=== PATIENT | male | born 1950 | race Caucasian/White ===

== ENCOUNTER 2022-11-20 04:28 | Outpatient (CLI) | payer MEDICARE, BC, SELFPAY | END 2022-11-20 04:29 | disposition home or self-care (01) | LOC: AMB 11-21 13:19 | PROVIDERS: PCP Family Medicine; Visit Provider Family Medicine | DX: R10.9 Unspecified abdominal pain (principal) | CPT/HCPCS: A0425; A0433 ==

== ENCOUNTER 2022-11-20 04:58 | Emergency (ER) | payer MEDICARE, BC, SELFPAY ==
[2022-11-20 04:59] VITALS: BP 151/90; PULSE 109; RESP 16; TEMP 37.1; O2SAT 96; BMI 29.4
--- NOTE | 2022-11-20 05:21 | CRLHL7_ITS ---
For Patients: As a result of the 21st Century Cures Act, medical imaging exams and procedure reports are released immediately into your electronic medical record. You may view this report before your referring provider. If you have questions, please contact your health care provider. INDICATION: abd pain anterior inferior sudden Indication: Sudden onset abdominal pain. Technique: CT of the abdomen and pelvis. Coronal/sagittal reconstruction images. 100 cc of Isovue 370 IV. Comparison: None. Findings: Lung bases: There is bibasilar dependent atelectasis. There is no acute airspace disease. Calcified granuloma at the right lung base. Additional calcified granuloma in the right middle lobe. Heart size is normal. No pleural/pericardial effusion. Abdomen/pelvis: There is no solid hepatic mass. The hepatic morphology is normal. No radiopaque gallstone. No dilation of intrahepatic biliary radicals. No perihepatic ascites. The spleen demonstrates a calcified granuloma. No splenic mass. There is no adrenal mass. There is no pancreatic mass or glandular atrophy. No common bile duct stone or mass. 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 This measures 8 millimeters on series 2, image 49. Hypodense lesion within the lateral cortex of the left kidney, measuring 12 mm, and 28 Hounsfield units. This does not meet strict criteria for a cyst. Additional renal hypodensities are likely benign cysts. No portal vein thrombosis. The SMV and splenic vein are patent. Right hip arthroplasty, which creates streak artifact. Fat containing inguinal hernias. Urinary bladder is normal. There is no evidence on CT for a small bowel or colonic obstruction. No mural thickening. No perienteric edema. No evidence for appendicitis. Normal caliber appendix. There is no inguinal or pelvic sidewall lymphadenopathy. The retroperitoneum and gastrohepatic ligament are normal. Visceral artery branches are patent. IVC is patent. Bridging osteophytes at both SI joints. Degenerative disc disease. Vertebral body heights are maintained on sagittal reconstruction images. Impression: 1. There is no colonic diverticulosis, or mural thickening/perienteric edema to indicate diverticulitis. 2. There is no free air, bowel obstruction, or drainable fluid collection. 3. Visceral artery branches are widely patent. SMV and its branches are patent. There is no pneumatosis coli/pneumatosis intestinalis. 4. Healed granulomatous disease. 5. Low-density lesion in the head of the pancreas, potentially branch duct IPMN. Renal hypodensities, the largest of which measures greater than 20 Hounsfield units. This may represent a hemorrhagic or proteinaceous cyst. MRI on a nonemergent basis may be obtained to assess both findings. 6. Report called to Dr. Alexandre, ED, 11/20/22, 0738 hours. Dictated by Rachid Mayberry MD @ 11/20/2022 7:39:22 AM Please note that all CT scans at this facility use dose modulation, iterative reconstruction, and/or weight-based dosing when appropriate to reduce radiation dose to as low as reasonably achievable. Dictated by: Rachid Mayberry MD @ 11/20/2022 07:39:27 (Electronically Signed)
[2022-11-20] MEDS: 0.9 % SODIUM CHLORIDE 500 ML 500 ML IV (05:48)
--- NOTE | 2022-11-20 05:52 | ED.GENADULT ---
HPI - General Adult General Chief complaint: Abdominal Pain Stated complaint: Abdominal pain Time Seen by Provider: 11/20/22 05:00 Source: patient and EMS Limitations: no limitations History of Present Illness HPI narrative: 72-year-old male presents to the emergency department with a 5 hour history of suprapubic/left lower quadrant area abdominal pain. He says that the pain was vague in achy initially but he was able to go to bed, he awoke a few hours later with worsening pain, had a sudden small black loose bowel movement. He was unable to make it to the restroom in time. He did not try taking any medications to help with his pain, did call EMS. Patient reports that he has been seen by provider at the [facility] and has had EGD and colonoscopy within the last month. He reports that these were normal. From what I can gather they have not appreciated any bleeding with these episodes. He reports they have not told him an etiology for the black stool. Denies that his previous episodes of black stools have been accompanied by any pain. He says that the episodes of some black stools have been going on for several months. He did has no known history of diverticulitis in the past. No abdominal trauma. He was nauseated initially but did not vomit. He did receive fentanyl and Zofran from EMS. He reports the pain after intervention is now down to a 3. Pain was initially achy. No dysuria, no fever. He did not bring his list of medications, we are attempting to get this from [facility]. He reports the stomach acid medicine, antidepressant, prostate medicine and cholesterol pill. He also takes aspirin 81 mg once daily. When I ask for clarification as to why he takes aspirin, he is not able to give me a specific reason but denies prior stroke or heart disease. Denies a family history of GI cancers. Socially, he is a nonsmoker. He gets most of his care through the [facility] he reports ROS is notable for the GI symptoms as above, otherwise completely denies times 12 systems. Related Data Home Medications Medication Instructions Recorded Confirmed albuterol sulfate 90 mcg/actuation 1 inh inhalation .Q4 PRN 11/20/22 11/20/22 breath activated powder inhaler aspirin 81 mg chewable tablet 81 mg PO DAILY 11/20/22 11/20/22 cetirizine 10 mg tablet 10 mg PO ONCE 11/20/22 11/20/22 famotidine 20 mg tablet 20 mg PO BID 11/20/22 11/20/22 fluoxetine 20 mg capsule 20 mg PO DAILY 11/20/22 11/20/22 fluticasone propionate 110 1 inh inhalation BID 11/20/22 11/20/22 mcg/actuation HFA aerosol inhaler (Flovent HFA) rosuvastatin 5 mg tablet (Crestor) 5 mg PO DAILY 11/20/22 11/20/22 tamsulosin 0.4 mg capsule (Flomax) 0.4 mg PO DAILY 11/20/22 11/20/22 Allergies Allergy/AdvReac Type Severity Reaction Status Date / Time oxycodone Allergy Verified 11/20/22 05:11 bees Allergy Uncoded 11/20/22 05:11 [facility] Medical History Acid reflux Depression Surgical History History of hip replacement Social History Smoking Status: Never smoker Do you use any of these nicotine containing products: None How often do you have a drink containing alcohol: never AUDIT-C Alcohol total score: 0 Non-prescribed substance use: denies use service: Yes Exam Const: Vital Signs, click to edit/add: Vital Signs - 24 hr 11/20/22 04:59 Temperature 98.8 F Pulse Rate [Pulse Oximeter] 109 H Respiratory Rate 16 Blood Pressure [Ri ght Upper Arm] 151/90 H Pulse Oximetry 96 Oxygen Delivery Me thod Room Air Documenting provider has reviewed patient's vital signs: yes Common normals: no apparent distress General appearance: cooperative and well kempt Other: Moderate historian, cannot list medications or give specific dates. HENMT: Common normals: normocephalic and head/scalp atraumatic Head and scalp: normocephalic and atraumatic Mouth: oral and palatal mucosa normal Throat: posterior oropharynx normal Eye: General eye: normal appearance of both eyes Neck & C-Spine: Common normals: full ROM and no lymphadenopathy Resp: Common normals: normal respiratory effort, no use of accessory muscles and clear to auscultation bilaterally Effort & inspection: able to speak in complete sentences Auscultation: clear to auscultation bilaterally Cardio: Common normals: regular rate, regular rhythm, S1 normal heart sound, S2 normal heart sound and no murmurs Rate: regular rate Rhythm: regular rhythm Heart sounds: S1 normal and S2 normal GI: Other: Abdomen appears very mildly distended but bowel sounds are active in all 4 quadrants. He is tender to the left lower quadrant and suprapubic region, not so much the right side. There is a little bit of guarding to the left lower quadrant but no perceived rebound tenderness. No obvious mass or hernia. Extremity: Common normals: no pedal edema Neuro: Speech: speech normal Motor exam: no tremor noted and no movement abnormalities noted Psych: Appearance: well kempt Activity/motor behavior: appropriate eye contact Mood and affect: euthymic mood Insight: fair Judgement: fair Skin: Common normals: no rashes or lesions noted General skin exam: no rashes or lesions noted Course Vital Signs Vital signs: Initial Vital Signs Temperature 98.8 F 11/20/22 04:59 Temperature Source Temporal Artery Scan 11/20/22 04:59 Pulse Rate 109 H 11/20/22 04:59 Pulse Rhythm 11/20/22 04:59 Respiratory Rate 16 11/20/22 04:59 Blood Pressure 151/90 H 11/20/22 04:59 Blood Pressure Mean 110 11/20/22 04:59 Blood Pressure Position Standing 11/20/22 04:59 Pulse Oximetry 96 11/20/22 04:59 Oxygen Delivery Method 11/20/22 04:59 Vital Signs Temperature 98.8 F 11/20/22 04:59 Pulse Rate 109 H 11/20/22 04:59 Respiratory Rate 16 11/20/22 04:59 Blood Pressure 151/90 H 11/20/22 04:59 Pulse Oximetry 96 11/20/22 04:59 Oxygen Delivery Method 11/20/22 04:59 Temperature 98.8 F 11/20/22 04:59 Pulse Rate 109 H 11/20/22 04:59 Respiratory Rate 16 11/20/22 04:59 Blood Pressure 151/90 H 11/20/22 04:59 Pulse Oximetry 96 11/20/22 04:59 Oxygen Delivery Method 11/20/22 04:59 Medical Decision Making MDM Narrative Medical decision making narrative: Wide differential diagnosis including GI malignancy, most likely diverticulitis. Cannot exclude colitis, ischemic event, urine infection, other etiologies. Recommended lab, CT scan. Hold off on any further pain meds for now, begin IV fluids. Await CT results. Update: Tachycardia improved. Patient remains afebrile, no further stools and certainly no bleeding here. I reviewed his lab findings, no signs of bacterial infection, no leukocytosis minimally elevated CRP. CT findings reviewed with patient including follow-up plan regarding his benign-appearing renal cysts. Unfortunately I cannot send a copy of this note to the [facility] but patient may request records if he feels the need. There do not appear to be any emergent threats to his health. I would recommend that he continue to follow-up with his GI team regarding a long-term plan but there does not appear to be any dangerous threats at this time. He may continue his typical activity and diet with no restrictions at this time. Lab Data Lab results reviewed: Yes I reviewed the patient's lab results Labs: Lab Results 11/20/22 11/20/22 11/20/22 Range/Units 05:40 05:40 06:35 WBC 10.03 (4.50-11.00) K/uL RBC 4.66 (4.30-5.90) m/uL Hgb 14.6 (13.5-17.5) gm/dL Hct 44.0 (37.0-53.0) % MCV 94 (80-100) fL MCH 31 (26-34) pg MCHC 33 (32-36) gm/dL RDW Coeff of Luciano 12.8 (11.5-15.5) % Plt Count 201 (140-440) K/uL Neut % (Auto) 91.7 H (42.0-72.0) % Lymph % (Auto) 3.3 L (20-44) % [place] % (Auto) 3.7 (0.0-11.0) % Eos % (Auto) 0.9 (0.0-7.0) % Baso % (Auto) 0.1 (0.0-3.0) % Neut # (Auto) 9.20 H (1.7-7.0) K/uL Lymph # (Auto) 0.30 L (0.90-2.90) K/uL [place] # (Auto) 0.40 (0.00-0.90) K/UL Eos # (Auto) 0.09 (0.00-0.50) K/uL Baso # (Auto) 0.01 (0.00-0.30) K/uL Sodium 141 (135-149) mmol/L Potassium 5.2 H (3.6-5.1) mmol/L Chloride 112 (96-114) mmol/L Carbon Dioxide 24 (20-32) mmol/L BUN 21 (7-30) mg/dL Creatinine 1.0 (0.5-1.5) mg/dL Estimated Creat Clear 66.92 Estimated GFR 79 ml/min Glucose 127 H (60-115) mg/dL Calcium 8.7 (8.4-10.6) mg/dL Total Bilirubin 0.7 (0.1-1.5) mg/dL AST 22 (12-35) U/L ALT 21 (4-50) U/L Alkaline Phosphatase 87 (40-150) U/L C-Reactive Protein 1.4 H (0.5-1.0) mg/dL Total Protein 7.1 (6.0-8.3) g/dL Albumin 4.2 (3.3-5.0) g/dL Lipase 106 (23-300) U/L Procalcitonin 0.18 (<0.50) ng/mL Urine Color Yellow (Yellow) Urine Appearance Clear (Clear) Urine pH 6.0 (5.0-8.5) Ur Specific [place] 1.020 (1.000-1.030) Urine Protein Negative (Negative) Urine Glucose (UA) Negative (Negative) Urine Ketones Negative (Negative) Urine Blood Negative (Negative) Urine Nitrite Negative (Negative) Urine Bilirubin Negative (Negative) Urine Urobilinogen 0.2 (0.2-1.0) Ur Leukocyte Esterase Negative (Negative) Imaging Data CT scan - abdomen: My impression: No acute findings Radiologist's impression: Impression: 1. There is no colonic diverticulosis, or mural thickening/perienteric edema to indicate diverticulitis. 2. There is no free air, bowel obstruction, or drainable fluid collection. 3. Visceral artery branches are widely patent. SMV and its branches are patent. There is no pneumatosis coli/pneumatosis intestinalis. 4. Healed granulomatous disease. 5. Low-density lesion in the head of the pancreas, potentially branch duct IPMN. Renal hypodensities, the largest of which measures greater than 20 Hounsfield units. This may represent a hemorrhagic or proteinaceous cyst. MRI on a nonemergent basis may be obtained to assess both findings. 6. Report called to Dr. Alexandre, ED, 11/20/22, 0738 hours. Discharge Plan Discharge Clinical Impression: Gastroenteritis Patient Disposition: Home, Self-Care Condition: Improved Instructions: Colitis (ED) Additional Instructions: There are no signs of bleeding in your GI tract, major infection, blood flow issues or other emergent abnormalities. This is great news. The blood work was also very reassuring. Your symptoms could be caused by many different non emergent issues and I would recommend that you make a follow-up appointment with her GI team to get further clarification on the next steps in your plan. It is okay to take Tylenol as needed for pain. We do typically recommend that you avoid NSAIDs until we are confident of the source of your colon symptoms. Come back to the emergency department if you start having large amounts of bright red blood per rectum, fevers over 100.4 with your pain and or severe weakness. As we also discussed, you have a small lesion that looks like a cyst on your kidney that is not overly worrisome at this time. Please give a copy of the report to your primary care provider at your next visit and determine if you should have further workup together. Activity Level: No Restrictions Discharge Diet: Regular Prescriptions: No Action tamsulosin [Flomax] 0.4 mg capsule 0.4 mg PO DAILY fluoxetine 20 mg capsule 20 mg PO DAILY fluticasone propionate [Flovent HFA] 110 mcg/actuation HFA aerosol inhaler 1 inh inhalation BID rosuvastatin [Crestor] 5 mg tablet 5 mg PO DAILY aspirin 81 mg tablet,chewable 81 mg PO DAILY albuterol sulfate 90 mcg/actuation aerosol powdr breath activated 1 inh inhalation .Q4 PRN famotidine 20 mg tablet 20 mg PO BID cetirizine 10 mg tablet 10 mg PO ONCE Follow Up/Referrals: Jerome Monteiro MD [Primary Care Provider] - Stand Alone Forms: [employer] Info Instructions
[2022-11-20 05:53] LABS: Basophils Absolute Auto 0.01 K/uL (0.00-0.30); Basophils Percent Auto 0.1 % (0.0-3.0); Eosinophils Absolute Auto 0.09 K/uL (0.00-0.50); Eosinophils Percent Auto 0.9 % (0.0-7.0); Hemoglobin* 14.6 gm/dL (13.5-17.5); Immature Granulocytes Abs Auto 0.03 K/uL (0.00-0.30); Immature Granulocytes Pct Auto 0.3 %; Lymphocytes Percent Auto 3.3 % (20-44); Mean Corpuscular HGB Conc 33 gm/dL (32-36); Mean Corpuscular Hemoglobin 31 pg (26-34); Mean Corpuscular Volume 94 fL (80-100); Monocytes Percent Auto 3.7 % (0.0-11.0); Neutrophils Percent Auto 91.7 % (42.0-72.0); Platelet Count* 201 K/uL (140-440); RDW Coefficient of Variation % 12.8 % (11.5-15.5); Red Blood Count 4.66 m/uL (4.30-5.90); White Blood Count* 10.03 K/uL (4.50-11.00)
[2022-11-20 05:54] LABS: Slide Review Reflex No
[2022-11-20 05:59] LABS: Chloride* 112 mmol/L (96-114)
[2022-11-20 06:00] LABS: Albumin* 4.2 g/dL (3.3-5.0); Potassium* 5.2 mmol/L (3.6-5.1); Sodium* 141 mmol/L (135-149)
[2022-11-20 06:02] LABS: Est. Creatinine Clearance* 66.92; Estimated Glomerular Filt Rate 79 ml/min
[2022-11-20 06:03] LABS: Alanine Aminotransferase* 21 U/L (4-50); Alkaline Phosphatase* 87 U/L (40-150); Aspartate Amino Transferase* 22 U/L (12-35); Bilirubin Total* 0.7 mg/dL (0.1-1.5); Blood Urea Nitrogen* 21 mg/dL (7-30); Calcium* 8.7 mg/dL (8.4-10.6); Carbon Dioxide* 24 mmol/L (20-32); Glucose* 127 mg/dL (60-115); Lipase* 106 U/L (23-300); Total Protein* 7.1 g/dL (6.0-8.3)
[2022-11-20 06:06] LABS: C Reactive Protein* 1.4 mg/dL (0.5-1.0)
[2022-11-20 06:20] LABS: Procalcitonin* 0.18 ng/mL (<0.50)
[2022-11-20 06:47] LABS: Appearance Urine Clear (Clear); Bilirubin Urine Negative (Negative); Blood Urine Negative (Negative); Color Urine Yellow (Yellow); Glucose Urine Negative (Negative); Ketones Urine Negative (Negative); Leukocyte Esterase Urine Negative (Negative); Nitrite Urine Negative (Negative); Protein Urine Negative (Negative); Urobilinogen Urine 0.2 (0.2-1.0)
[2022-11-20 06:49] VITALS: BP 141/83
[2022-11-20 07:02] VITALS: BP 137/78
[2022-11-20 07:17] VITALS: BP 135/81
[2022-11-20 07:32] VITALS: BP 132/82
[2022-11-20 07:47] VITALS: BP 115/78
== END 2022-11-20 07:56 | disposition home or self-care (01) ==
PROVIDERS: Emergency Provider Family Medicine; PCP Family Medicine
DX: K52.9 Noninfective gastroenteritis and colitis, unspecified (principal)
CPT/HCPCS: 36415; 74177; 80053; 81003; 83690; 84145; 85025; 86140; 99283; 99284; 99285; J7120; Q9967

== ENCOUNTER 2023-09-03 08:53 | Emergency (ER) | payer MEDICARE, BC, SELFPAY ==
[2023-09-03 08:59] VITALS: BP 109/69; PULSE 69; RESP 24; TEMP 36.2; O2SAT 97
--- NOTE | 2023-09-03 09:19 | ED_ITS ---
HPI - Weakness General Time Seen by Provider: 09:19 Date Seen: 09/03/23 Chief complaint: Weakness Stated complaint: trouble breathing Time Seen by Provider: 09/03/23 09:19 Source: patient and RN notes reviewed Mode of arrival: ambulatory Limitations: no limitations History of Present Illness HPI Narrative: Francisco is a very pleasant 72-year-old gentleman with a history of daily aspirin use, recent normal Myoview with an ejection fraction of 63% who comes to the emergency room for evaluation of shortness of breath and dizziness. Patient notes that he has been experiencing shortness of breath with occasional chest heaviness and that is what prompted the Myoview stress test 3 weeks ago. He states a couple of days ago it started worsening and today being the worst day over the last 3. Patient states that he is dizzy upon standing any gets very short of breath with any ambulation. He denies chest pain today but does describe a heaviness in his chest and anterior abdomen. It is not present when he is resting. Francisco notes that he has started to feel more congestion in his head especially his nose. Otherwise no sore throat or cough and he has not had a fever. Patient denies a racing heart rate or history of blood clots. He notes no recent long car rides or plane trips. He does note that he has been sitting around quite a bit but denies any calf tenderness or leg swelling. He has no known ill exposures. Patient has no history of heart attack or heart problems. He is a nonsmoker and does not use alcohol. He is retired from [employer]. He is a of the [place] [employer] having served in the [employer]. Recent Myoview perfusion shows no evidence of ischemia or abnormal wall motion. Ejection fraction of 63%. Related Data Home Medications Medication Instructions Recorded Confirmed aspirin 81 mg chewable tablet 81 mg PO DAILY 11/20/22 09/03/23 cetirizine 10 mg tablet 10 mg PO ONCE 11/20/22 09/03/23 famotidine 20 mg tablet 20 mg PO BID 11/20/22 09/03/23 fluoxetine 20 mg capsule 20 mg PO DAILY 11/20/22 09/03/23 rosuvastatin 5 mg tablet (Crestor) 5 mg PO DAILY 11/20/22 09/03/23 tamsulosin 0.4 mg capsule (Flomax) 0.4 mg PO DAILY 11/20/22 09/03/23 omeprazole 20 mg capsule,delayed 20 mg PO BID 06/19/23 09/03/23 release Previous Rx's Medication Instructions Recorded albuterol sulfate 90 mcg/actuation 2 puff inhalation Q4-6H PRN 06/19/23 aerosol inhaler shortness of breath or wheezing #8.5 grams Allergies Allergy/AdvReac Type Severity Reaction Status Date / Time oxycodone Allergy Verified 09/03/23 09:02 bees Allergy Uncoded 06/19/23 16:17 Review of Systems Status of ROS: Reports: 10 or more systems reviewed and unremarkable except as noted in History and below Const: Denies: fever or chills Eyes: Denies: change in vision ENMT: Reports: nasal congestion; Denies: throat pain, neck pain, difficulty swallowing or ear pain Cardio: Reports: lightheadedness and shortness of breath with exertion; Denies: chest pain, palpitations or swelling of feet/ankles Resp: Reports: shortness of breath; Denies: cough, wheezing or stridor GI: Denies: abdominal pain, nausea, vomiting, diarrhea or difficulty swallowing : Denies: painful urination or urinary frequency Musculo: Denies: back pain, neck pain, extremity pain or extremity swelling Integ/Breast: Denies: rash Neuro: Denies: headache, numbness in extremities or weakness in extremities Allergy/Immuno: Denies: wheezing PFSH PFSH Medical History Bronchospasm ?J98.01 - Acute bronchospasm (ICD-10) Reactive airway disease ?J45.909 - Unspecified asthma, uncomplicated (ICD-10) Cough ?R05.9 - Cough, unspecified (ICD-10) Acid reflux ?K21.9 - Gastro-esophageal reflux disease without esophagitis (ICD-10) Depression ?F32.A - Depression, unspecified (ICD-10) Surgical History History of hip replacement ?Z96.649 - Presence of unspecified artificial hip joint (ICD-10) Social History Smoking Status: Never smoker Do you use any of these nicotine containing products: None How often do you have a drink containing alcohol: never AUDIT-C Alcohol total score: 0 Non-prescribed substance use: denies use service: Yes Exam Narrative: Exam Narrative: Alert and oriented. Eyes are clear. Oral cavity with moist mucous membranes. Face is symmetrical. Speech and mentation normal. No evidence of JVD. Heart with a regular rate and rhythm. Lungs are clear in all lung hansen although breath sounds are rather distant. Abdomen soft nontender. Lower extremities without edema. There is no calf tenderness and negative Homans sign. Moving all extremities and nontoxic in appearance. Const: Vital Signs, click to edit/add: Vital Signs - 24 hr 09/03/23 08:59 09/03/23 11:45 Temperature 97.2 F L Pulse Rate [Right Pulse Oximeter] 69 62 Respiratory Rate 24 18 Blood Pressure [Ri ght Upper Arm] 109/69 129/79 Pulse Oximetry 97 99 Oxygen Delivery Me thod Room Air Room Air Documenting provider has reviewed patient's vital signs: yes Course Course ED Course: At this time differential diagnosis includes but is not limited to COVID, influenza, RSV, other virus, pneumonia, angina, congestive heart failure, PE. Will obtain triple swab, chest x-ray, EKG and troponin as well as CBC, comprehensive panel. Patient will placed on quality assurance monitor final. He is in agreement with our plan. Reevaluation(s) Time of Reevaluation #1: 10:11 Reevaluation #1: Patient noted to have EKG was sinus rhythm and a negative troponin. Reevaluation #2: CT of the chest is reassuring with no evidence of PE, infiltrate, abnormality. 500 mL normal saline given for protection of kidneys after contrast was used. Currently awaiting call from Cardiology in regards to this patient with shortness of breath, chest heaviness with activity, and reassuring labs and radiological studies. Vital Signs Vital signs: Initial Vital Signs Temperature 97.2 F L 09/03/23 08:59 Temperature Source Temporal Artery Scan 09/03/23 08:59 Pulse Rate 69 09/03/23 08:59 Pulse Rhythm Regular 09/03/23 08:59 Pulse Strength 3+ Normal 09/03/23 08:59 Respiratory Rate 24 09/03/23 08:59 Blood Pressure 109/69 09/03/23 08:59 Blood Pressure Mean 82 09/03/23 08:59 Blood Pressure Position Sitting 09/03/23 08:59 Pulse Oximetry 97 09/03/23 08:59 Oxygen Delivery Method Room Air 09/03/23 08:59 Vital Signs Temperature 97.2 F L 09/03/23 08:59 Pulse Rate 69 09/03/23 08:59 Respiratory Rate 24 09/03/23 08:59 Blood Pressure 109/69 09/03/23 08:59 Pulse Oximetry 97 09/03/23 08:59 Oxygen Delivery Method Room Air 09/03/23 08:59 Temperature 97.2 F L 09/03/23 08:59 Pulse Rate 62 09/03/23 11:45 Respiratory Rate 18 09/03/23 11:45 Blood Pressure 129/79 09/03/23 11:45 Pulse Oximetry 99 09/03/23 11:45 Oxygen Delivery Method Room Air 09/03/23 11:45 Medications Administered Medications: Discontinued Medications Generic Name Dose Route Start Last Admin Trade Name Freq PRN Reason Stop Dose Admin Sodium Chloride 500 mls @ 500 mls/hr 09/03/23 12:43 09/03/23 12:55 0.9 % Sodium Chloride 500 Ml IV 09/03/23 13:42 500 mls/hr .Q1H ONE Administration MDM - Weakness MDM Narrative Medical decision making narrative: 1. Shortness of breath with exertion-patient has been asymptomatic since he has been in room 5 here in the emergency room. In the past patient has also experienced some chest pain and thus underwent a Myoview perfusion which was normal 3 weeks ago. He denies chest pain today. Two EKGs are reassuring we have 2 sets of cardiac enzymes which are negative. Chest x-ray was clear but given patient's ongoing symptoms we elected to proceed with CT PE study and that was negative for any abnormalities. Patient notes that he will often get a heaviness on his anterior chest when he was short of breath. He underwent a Myoview perfusion study 3 weeks ago which was normal. I was able to discussed patient with Cardiology, Dr. Bonner. Cardiology requests that patient be seen in their office. I have given patient the number to [facility]. 2. Disposition-home at this time. Patient notes that this is a particularly tough time a year for him having lost his brother and recently. His parents are also gone. He will be spending [place] today with his family. He has a grandson that he is particularly close to. I have asked patient to continue on his aspirin. He is advised however to avoid any activity that would increase heart rate. He agrees to do that. He does note that he is gain some weight recently and is not very good with exercising. In spite of that I do not want him starting any exercise program until he sees cardiology. He is in agreement. He will return to the emergency room for worsening symptoms. Medical Records Attestation: I reviewed the patient's medical records. Lab Data Attestation: I reviewed the patient's lab results. Lab results narrative: Negative troponin. Labs: Lab Results 09/03/23 09/03/23 09/03/23 Range/Units 09:27 09:48 10:09 WBC 5.37 (4.50-11.00) K/uL RBC 4.60 (4.30-5.90) m/uL Hgb 14.4 (13.5-17.5) gm/dL Hct 43.1 (37.0-53.0) % MCV 94 (80-100) fL MCH 31 (26-34) pg MCHC 33 (32-36) gm/dL RDW Coeff of Luciano 12.8 (11.5-15.5) % Plt Count 227 (140-440) K/uL Neut % (Auto) 64.0 (42.0-72.0) % Lymph % (Auto) 21.6 (20-44) % [place] % (Auto) 8.2 (0.0-11.0) % Eos % (Auto) 5.6 (0.0-7.0) % Baso % (Auto) 0.6 (0.0-3.0) % Neut # (Auto) 3.44 (1.7-7.0) K/uL Lymph # (Auto) 1.16 (0.90-2.90) K/uL [place] # (Auto) 0.40 (0.00-0.90) K/UL Eos # (Auto) 0.30 (0.00-0.50) K/uL Baso # (Auto) 0.03 (0.00-0.30) K/uL Abs Immat Gran (auto) 0.00 (0.00-0.30) K/uL Imm/Tot Granulo (auto) 0.0 % D-Dimer Quant (PE/DVT) 0.31 (0.00-0.50) ug/ml Sodium 139 (135-149) mmol/L Potassium 4.3 (3.6-5.1) mmol/L Chloride 107 (96-114) mmol/L Carbon Dioxide 24 (20-32) mmol/L Anion Gap 8 (7-15) mEq/L BUN 16 (7-30) mg/dL Creatinine 0.8 (0.5-1.5) mg/dL Estimated GFR 93 ml/min Glucose 90 (60-115) mg/dL Calcium 9.1 (8.4-10.6) mg/dL Total Bilirubin 0.7 (0.1-1.5) mg/dL AST 20 (12-35) U/L ALT 19 (4-50) U/L Alkaline Phosphatase 98 (40-150) U/L NT-Pro-B Natriuret Pep 80 pg/mL Total Protein 7.1 (6.0-8.3) g/dL Albumin 4.3 (3.3-5.0) g/dL SARS-CoV-2 (PCR) Negative SARS-CoV-2 (Negative) Influenza Type A (PCR) Negative PCR FLU A (Negative) Influenza Type B (PCR) Negative PCR FLU B (Negative) RSV (PCR) Negative PCR RSV (Negative) POC Troponin I 0.00 L (0.01-0.04) ng/ml 09/03/23 Range/Units 11:47 WBC (4.50-11.00) K/uL RBC (4.30-5.90) m/uL Hgb (13.5-17.5) gm/dL Hct (37.0-53.0) % MCV (80-100) fL MCH (26-34) pg MCHC (32-36) gm/dL RDW Coeff of Luciano (11.5-15.5) % Plt Count (140-440) K/uL Neut % (Auto) (42.0-72.0) % Lymph % (Auto) (20-44) % [place] % (Auto) (0.0-11.0) % Eos % (Auto) (0.0-7.0) % Baso % (Auto) (0.0-3.0) % Neut # (Auto) (1.7-7.0) K/uL Lymph # (Auto) (0.90-2.90) K/uL [place] # (Auto) (0.00-0.90) K/UL Eos # (Auto) (0.00-0.50) K/uL Baso # (Auto) (0.00-0.30) K/uL Abs Immat Gran (auto) (0.00-0.30) K/uL Imm/Tot Granulo (auto) % D-Dimer Quant (PE/DVT) (0.00-0.50) ug/ml Sodium (135-149) mmol/L Potassium (3.6-5.1) mmol/L Chloride (96-114) mmol/L Carbon Dioxide (20-32) mmol/L Anion Gap (7-15) mEq/L BUN (7-30) mg/dL Creatinine (0.5-1.5) mg/dL Estimated GFR ml/min Glucose (60-115) mg/dL Calcium (8.4-10.6) mg/dL Total Bilirubin (0.1-1.5) mg/dL AST (12-35) U/L ALT (4-50) U/L Alkaline Phosphatase (40-150) U/L NT-Pro-B Natriuret Pep pg/mL Total Protein (6.0-8.3) g/dL Albumin (3.3-5.0) g/dL SARS-CoV-2 (PCR) (Negative) Influenza Type A (PCR) (Negative) Influenza Type B (PCR) (Negative) RSV (PCR) (Negative) POC Troponin I 0.00 L (0.01-0.04) ng/ml Imaging Data Chest x-ray: Attestation: I have reviewed the pertinent imaging results. My impression: No obvious consolidations or infiltrates. Radiologist's impression: A portable AP view of the chest was obtained. The cardiac silhouette and pulmonary vasculature are within normal limits. The lungs are clear bilaterally. IMPRESSION: No evidence of acute pulmonary disease. CT scan - chest: Attestation: I have reviewed the pertinent imaging results. My impression: No obvious PE Radiologist's impression: No pulmonary emboli are demonstrated. There is no evidence to indicate right heart strain. No displaced intimal calcification. No mass at the thoracic inlet. No pleural or pericardial effusion. Coronary artery calcifications. No axillary, mediastinal, or hilar lymphadenopathy. Lung windows demonstrate no endobronchial nodule or mass. No resorptive atelectasis. There is bibasilar linear atelectasis. There is no peripheral honeycomb formation or traction bronchiectasis. Calcified granulomas are present. There is no suspicious pulmonary nodule. There is no acute airspace disease. Evaluation of the upper abdomen demonstrates no adrenal mass. Spleen size is normal. Calcified splenic granuloma. There is no pancreatic mass, pancreatic duct dilation, or glandular atrophy. No inflammatory changes adjacent to the gallbladder. No upper abdominal ascites. The bone windows demonstrate no suspicious bone lesions. Degenerative disc disease. The alignment is preserved on sagittal reconstruction images. Manubrium/body of the sternum appear intact. Impression: 1. No pulmonary emboli. 2. No evidence on CT to indicate right heart strain. There is no pulmonary infarct. 3. No thoracic lymphadenopathy or acute airspace disease. ECG Data Attestation: I personally reviewed and interpreted this ECG as follows: ECG interpretation date: 09/03/23 Interpretation: EKG 1. By my read shows sinus rhythm at a rate of 60. There is questionable Q- wave noted in 3 which is isolated. No other acute ST or T-wave changes. QT and IA intervals within normal limits. Discharge Plan Discharge Clinical Impression: Exertional shortness of breath, Atypical chest pain Patient Disposition: Home, Self-Care Condition: Improved Additional Instructions: At this time your EKGs are reassuring and you have had 2- tests of troponin. There is no evidence of a heart attack today. Your CT was normal with no evidence of blood clots, fluid in the lungs or around the heart. I spoke with Cardiology from the [facility] and they feel that you should follow-up with them next week. The machine cleaner's I spoke to was Dr. Pichardo. The phone number is [phone] Emergency room for worsening symptoms. Avoid any activity that raises heart rate including sexual activity, wood working, shoveling snow etc.. Prescriptions: No Action omeprazole 20 mg capsule,delayed release(DR/EC) 20 mg PO BID albuterol sulfate 90 mcg/actuation HFA aerosol inhaler 2 puff inhalation Q4-6H PRN (Reason: shortness of breath or wheezing) Qty: 8.5 0RF tamsulosin [Flomax] 0.4 mg capsule 0.4 mg PO DAILY fluoxetine 20 mg capsule 20 mg PO DAILY rosuvastatin [Crestor] 5 mg tablet 5 mg PO DAILY aspirin 81 mg tablet,chewable 81 mg PO DAILY famotidine 20 mg tablet 20 mg PO BID cetirizine 10 mg tablet 10 mg PO ONCE Follow Up/Referrals: Jerome Monteiro MD [Primary Care Provider] - Stand Alone Forms: [facility] Info Instructions
--- NOTE | 2023-09-03 09:27 | CRLHL7_ITS ---
For Patients: As a result of the Cures Act, medical imaging exams and procedure reports are released immediately into your electronic medical record. You may view this report before your referring provider. If you have questions, please contact your health care provider. INDICATION: Shortness of breath. COMPARISON: 06/19/2023. Findings: A portable AP view of the chest was obtained. The cardiac silhouette and pulmonary vasculature are within normal limits. The lungs are clear bilaterally. IMPRESSION: No evidence of acute pulmonary disease. Dictated by Nikita Jean-Baptiste MD @ 09/03/2023 10:12:12 AM (Electronically Signed)
[2023-09-03 09:58] LABS: Basophils Absolute Auto 0.03 K/uL (0.00-0.30); Basophils Percent Auto 0.6 % (0.0-3.0); Eosinophils Percent Auto 5.6 % (0.0-7.0); Hematocrit 43.1 % (37.0-53.0); Hemoglobin* 14.4 gm/dL (13.5-17.5); Lymphocytes Absolute Auto 1.16 K/uL (0.90-2.90); Lymphocytes Percent Auto 21.6 % (20-44); Mean Corpuscular HGB Conc 33 gm/dL (32-36); Mean Corpuscular Hemoglobin 31 pg (26-34); Mean Corpuscular Volume 94 fL (80-100); Monocytes Percent Auto 8.2 % (0.0-11.0); Neutrophils Absolute Auto 3.44 K/uL (1.7-7.0); Platelet Count* 227 K/uL (140-440); RDW Coefficient of Variation % 12.8 % (11.5-15.5); White Blood Count* 5.37 K/uL (4.50-11.00)
[2023-09-03 09:59] LABS: Slide Review Reflex No
[2023-09-03 10:10] LABS: Albumin* 4.3 g/dL (3.3-5.0); Chloride* 107 mmol/L (96-114); Potassium* 4.3 mmol/L (3.6-5.1); Sodium* 139 mmol/L (135-149)
[2023-09-03 10:12] LABS: Creatinine* 0.8 mg/dL (0.5-1.5); Estimated Glomerular Filt Rate 93 ml/min
[2023-09-03 10:13] LABS: Alanine Aminotransferase* 19 U/L (4-50); Alkaline Phosphatase* 98 U/L (40-150); Anion Gap 8 mEq/L (7-15); Aspartate Amino Transferase* 20 U/L (12-35); Bilirubin Total* 0.7 mg/dL (0.1-1.5); Blood Urea Nitrogen* 16 mg/dL (7-30); Carbon Dioxide* 24 mmol/L (20-32); Glucose* 90 mg/dL (60-115); Total Protein* 7.1 g/dL (6.0-8.3)
[2023-09-03 10:14] LABS: Calcium* 9.1 mg/dL (8.4-10.6)
[2023-09-03 10:15] LABS: D Dimer Quantitative* 0.31 ug/ml (0.00-0.50)
[2023-09-03 10:51] LABS: PCR FLU A Negative PCR FLU A (Negative); PCR FLU B Negative PCR FLU B (Negative); PCR RSV Negative PCR RSV (Negative)
[2023-09-03 10:54] LABS: SARS PCR* Negative SARS-CoV-2 (Negative)
[2023-09-03 11:30] LABS: NT Pro B Type NatriureticPept* 80 pg/mL
--- NOTE | 2023-09-03 11:30 | CRLHL7_ITS ---
For Patients: As a result of the Century Cures Act, medical imaging exams and procedure reports are released immediately into your electronic medical record. You may view this report before your referring provider. If you have questions, please contact your health care provider. INDICATION: Chest pain and shortness of breath Indication: Chest pain and shortness of breath. Technique: CT pulmonary angiogram. 95 cc of Isovue 370 IV. Coronal/sagittal reconstruction images. Comparison: 11/04/2020. Findings: No pulmonary emboli are demonstrated. There is no evidence to indicate right heart strain. No displaced intimal calcification. No mass at the thoracic inlet. No pleural or pericardial effusion. Coronary artery calcifications. No axillary, mediastinal, or hilar lymphadenopathy. Lung windows demonstrate no endobronchial nodule or mass. No resorptive atelectasis. There is bibasilar linear atelectasis. There is no peripheral honeycomb formation or traction bronchiectasis. Calcified granulomas are present. There is no suspicious pulmonary nodule. There is no acute airspace disease. Evaluation of the upper abdomen demonstrates no adrenal mass. Spleen size is normal. Calcified splenic granuloma. There is no pancreatic mass, pancreatic duct dilation, or glandular atrophy. No inflammatory changes adjacent to the gallbladder. No upper abdominal ascites. The bone windows demonstrate no suspicious bone lesions. Degenerative disc disease. The alignment is preserved on sagittal reconstruction images. Manubrium/body of the sternum appear intact. Impression: 1. No pulmonary emboli. 2. No evidence on CT to indicate right heart strain. There is no pulmonary infarct. 3. No thoracic lymphadenopathy or acute airspace disease. Dictated by Rachid Mayberry MD @ 09/03/2023 12:55:31 PM Please note that all CT scans at this facility use dose modulation, iterative reconstruction, and/or weight-based dosing when appropriate to reduce radiation dose to as low as reasonably achievable. Dictated by: Rachid Mayberry MD @ 09/03/2023 12:55:50 (Electronically Signed)
[2023-09-03 11:45] VITALS: BP 129/79; PULSE 62; RESP 18; O2SAT 99
[2023-09-03 12:50] VITALS: BP 131/83; PULSE 62; RESP 18; O2SAT 94
[2023-09-03] MEDS: 0.9 % SODIUM CHLORIDE 500 ML 500 ML IV (12:55)
[2023-09-03 13:00] VITALS: BP 140/77; PULSE 61; RESP 16; O2SAT 95
[2023-09-03 13:30] VITALS: BP 143/75; PULSE 62; RESP 16; O2SAT 97
[2023-09-03 14:00] VITALS: BP 110/92; PULSE 62; RESP 16; O2SAT 96
== END 2023-09-03 14:21 | disposition home or self-care (01) ==
PROVIDERS: Emergency Provider Family Medicine; PCP Family Medicine
DX: R06.02 Shortness of breath (principal)
CPT/HCPCS: 36415; 71045; 71275; 80053; 83880; 84484; 85025; 85379; 87631; 93005; 99285; J7120; Q9967

== ENCOUNTER 2023-09-03 16:25 | Outpatient (CLI) | payer MEDICARE, BC, SELFPAY | END 2023-09-03 16:26 | disposition home or self-care (01) | PROVIDERS: PCP Family Medicine; Visit Provider Family Medicine | DX: R07.89 Other chest pain (principal) | CPT/HCPCS: A0425; A0427 ==

== ENCOUNTER 2023-09-03 16:55 | Observation (INO) | payer MEDICARE, BC, SELFPAY ==
[2023-09-03] VITALS (24 sets, daily range): BP systolic 99–131; BP diastolic 55–99; PULSE 56–73; RESP 16–20; TEMP 36.5–36.6; O2SAT 88–97; BMI 30.1; BMI 30.9
--- NOTE | 2023-09-03 17:02 | CRLHL7_ITS ---
For Patients: As a result of the Cures Act, medical imaging exams and procedure reports are released immediately into your electronic medical record. You may view this report before your referring provider. If you have questions, please contact your health care provider. INDICATION: Chest pain with associated diaphoresis. Shortness of breath. COMPARISON: Chest x-ray and chest CT done earlier the same day. FINDINGS: A portable AP view of the chest was obtained. The cardiac silhouette is stable. The pulmonary vasculature is within normal limits. The lungs are clear bilaterally. There is no pneumothorax. IMPRESSION: Stable chest x-ray. No evidence of acute pulmonary disease. Dictated by Nikita Jean-Baptiste MD @ 09/03/2023 5:45:00 PM (Electronically Signed)
--- NOTE | 2023-09-03 17:12 | ED_ITS ---
HPI - Chest Pain General Time Seen by Provider: 17:12 Date Seen: 09/03/23 Chief Complaint: Chest Pain Stated Complaint: Chest pain Time Seen by Provider: 09/03/23 17:02 Source: patient, EMS, RN notes reviewed and old records reviewed Mode of arrival: EMS Limitations: no limitations History of Present Illness HPI narrative: Patient is a 72-year-old male that returns by EMS after being discharged earlier today for evaluation of chest pain. He went home, was just scaring package of presents about 20 ft when he started having the anterior substernal chest pain. It did not radiate anywhere. He became diaphoretic, short of breath. He went to sit down, it helped relieve the chest pain. He had some nausea with this. When EMS got there his O2 sats were 88%. He notes he still feeling short of breath but the chest pain has largely resolved. EMS did give him nitro and Zofran, he does not believe the nitro did anything. He has no chest pain at this time, still feels short of breath, is on 2 L nasal cannula oxygen. Earlier today, had negative EKGs and troponins x2. Did have a negative chest CT PE protocol. He was to be scheduled for an outpatient angiogram with Cardiology. Cardiology was consulted earlier today. He notes no prior cardiac history himself, reportedly had a negative Myoview 3 weeks ago for similar symptoms. There is family history of coronary artery disease. He had normal CBC, normal comprehensive metabolic panel, normal D-dimer, 2- troponins earlier. MD complaint: chest pain Related Data Home Medications Medication Instructions Recorded Confirmed aspirin 81 mg chewable tablet 81 mg PO DAILY 11/20/22 09/03/23 cetirizine 10 mg tablet 10 mg PO ONCE 11/20/22 09/03/23 famotidine 20 mg tablet 20 mg PO BID 11/20/22 09/03/23 fluoxetine 20 mg capsule 20 mg PO DAILY 11/20/22 09/03/23 rosuvastatin 5 mg tablet (Crestor) 5 mg PO DAILY 11/20/22 09/03/23 tamsulosin 0.4 mg capsule (Flomax) 0.4 mg PO DAILY 11/20/22 09/03/23 omeprazole 20 mg capsule,delayed 20 mg PO BID 06/19/23 09/03/23 release Previous Rx's Medication Instructions Recorded albuterol sulfate 90 mcg/actuation 2 puff inhalation Q4-6H PRN 06/19/23 aerosol inhaler shortness of breath or wheezing #8.5 grams Allergies Allergy/AdvReac Type Severity Reaction Status Date / Time oxycodone Allergy Verified 09/03/23 09:02 bees Allergy Uncoded 06/19/23 16:17 Review of Systems Status of ROS Reports: 6 or more systems reviewed and unremarkable except as noted in History and below [facility] Medical History Bronchospasm ?J98.01 - Acute bronchospasm (ICD-10) Reactive airway disease ?J45.909 - Unspecified asthma, uncomplicated (ICD-10) Cough ?R05.9 - Cough, unspecified (ICD-10) Acid reflux ?K21.9 - Gastro-esophageal reflux disease without esophagitis (ICD-10) Depression ?F32.A - Depression, unspecified (ICD-10) Surgical History History of hip replacement ?Z96.649 - Presence of unspecified artificial hip joint (ICD-10) Social History Smoking Status: Never smoker Do you use any of these nicotine containing products: None Second hand tobacco smoke exposure: No How often do you have a drink containing alcohol: never How often do you have six or more drinks on one occasion: Never AUDIT-C Alcohol total score: 0 Non-prescribed substance use: denies use service: Yes Exam Const Vital Signs, click to edit/add: Vital Signs - 24 hr 09/03/23 16:59 09/03/23 17:19 09/03/23 17:31 Temperature 97.9 F Pulse Rate 64 Pulse Rate [Apical] 73 Respiratory Rate 20 Blood Pressure Blood Pressure [Right Upper Arm] 99/71 Pulse Oximetry 88 93 92 Oxygen Delivery Method Room Air Oxygen Flow Rate 09/03/23 17:32 09/03/23 17:45 09/03/23 18:00 Temperature Pulse Rate 63 62 61 Pulse Rate [Apical] Respiratory Rate Blood Pressure 115/71 Blood Pressure [Right Upper Arm] Pulse Oximetry 93 92 95 Oxygen Delivery Method Oxygen Flow Rate 09/03/23 18:01 09/03/23 18:15 09/03/23 18:30 Temperature Pulse Rate 59 L 59 L 56 L Pulse Rate [Apical] Respiratory Rate Blood Pressure 115/71 Blood Pressure [Right Upper Arm] Pulse Oximetry 95 97 95 Oxygen Delivery Method Oxygen Flow Rate 09/03/23 18:31 09/03/23 18:45 09/03/23 19:08 Temperature Pulse Rate 58 L 57 L Pulse Rate [Apical] Respiratory Rate Blood Pressure 126/77 Blood Pressure [Right Upper Arm] Pulse Oximetry 96 95 93 Oxygen Delivery Method Nasal Cannula Oxygen Flow Rate 2 Patient is alert, interactive, no apparent distress. He is not diaphoretic, skin is warm and dry. Sclera clear, symmetrical facial function, speech is normal. Lungs are clear, good air entry, wheezing crackles. CV regular rate and rhythm, no murmur, normal S1-S2, no S3-S4. No reproducible chest wall pain. Abdomen is soft, nontender, nondistended, no organomegaly. He has no lower extremity edema. Documenting provider has reviewed patient's vital signs: yes Course Course ED Course: Will see if EMS or during his course here earlier he had any other aspirin, may consider giving him 162 mg if he has not had anything but the 81 mg aspirin today. Right now he is pain-free. Will have him on cardiac monitoring, pulse oximetry. Will get a repeat EKG and troponin, repeat portable chest x-ray. He did have negative triple swab earlier today as well. This certainly seems to be consistent with cardiac etiology. Once I have my EKG and troponin and portable chest x-ray back, will likely talk to Cardiology again. Reevaluation(s) Time of Reevaluation #1: 18:23 Reevaluation #1: Checked on patient, he is stable, no chest pain. Otherwise feels about the same. Reviewed that his chest x-ray, EKG and troponin are normal. We are waiting to hear from Cardiology. Time of Reevaluation #2: 19:08 Reevaluation #2: Have reviewed with patient plan to observe overnight, do some serial EKGs and troponins, be on cardiac monitoring. He is asymptomatic at this time. He is in agreement with this plan. Did review my conversation with the flexographic printing press operator. Consultations Consultation #1: Did speak with Cardiology Dr. Guerrier, he reviewed with me that the last angiogram he sees in patient's chart is 2006. He did have a negative stress test/workup in 2017 there. He could not see the most recent reported stress test from the patient 3 weeks ago. Unsure with this was done. He recommended placing the patient hospital overnight, EKGs is needed, serial troponins/troponin in the morning. The hospitalists can touch base with their service tomorrow as to ultimate follow-up, possible outpatient CT angiogram per his thoughts. Time: 18:35 Consultation #2: Did speak with Dr. Montanez the hospitalist. Reviewed the case. She agrees to accept the patient. Time: 18:55 Vital Signs Vital signs: Initial Vital Signs Temperature 97.9 F 09/03/23 16:59 Temperature Source Temporal Artery Scan 09/03/23 16:59 Pulse Rate 73 09/03/23 16:59 Pulse Rhythm Regular 09/03/23 16:59 Respiratory Rate 20 09/03/23 16:59 Blood Pressure 99/71 09/03/23 16:59 Blood Pressure Mean 80 09/03/23 16:59 Blood Pressure Position Supine 09/03/23 16:59 Pulse Oximetry 88 09/03/23 16:59 Oxygen Delivery Method Room Air 09/03/23 16:59 Vital Signs Temperature 97.9 F 09/03/23 16:59 Pulse Rate 73 09/03/23 16:59 Respiratory Rate 20 09/03/23 16:59 Blood Pressure 99/71 09/03/23 16:59 Pulse Oximetry 88 09/03/23 16:59 Oxygen Delivery Method Room Air 09/03/23 16:59 Temperature 97.9 F 09/03/23 16:59 Pulse Rate 57 L 09/03/23 18:45 Respiratory Rate 20 09/03/23 16:59 Blood Pressure 126/77 09/03/23 18:31 Pulse Oximetry 93 09/03/23 19:08 Oxygen Delivery Method Nasal Cannula 09/03/23 19:08 Oxygen Flow Rate 2 09/03/23 19:08 Medications Administered Medications: Discontinued Medications Generic Name Dose Route Start Last Admin Trade Name Freq PRN Reason Stop Dose Admin Aspirin 162 mg 09/03/23 17:27 09/03/23 17:50 Aspirin 81 Mg Tab.Chew PO 09/03/23 17:28 162 mg ONCE ONE Administration MDM - Chest Pain Lab Data Attestation: I reviewed the patient's lab results. Labs: Lab Results 09/03/23 Range/Units 17:40 POC Troponin I 0.00 L (0.01-0.04) ng/ml Imaging Data Chest x-ray: Attestation: I have reviewed the pertinent imaging results. Radiologist's impression: Patient: ISELA PARKER Facility:?[facility] Patient ID:?[id number] Site Patient ID:?[id number]. Site :?[id number] Study:?XRay Chest 1v portable-09/03/2023 5:25:44 PM Ordering Physician:?Javy Nguyen Final Report: INDICATION: Chest pain with associated diaphoresis. Shortness of breath. COMPARISON: Chest x-ray and chest CT done earlier the same day. FINDINGS: A portable AP view of the chest was obtained. The cardiac silhouette is stable. The pulmonary vasculature is within normal limits. The lungs are clear bilaterally. There is no pneumothorax. IMPRESSION: Stable chest x-ray. No evidence of acute pulmonary disease. Dictated by Nikita Jean-Baptiste MD @ 09/03/2023 5:45:00 PM (Electronic Signature) ECG Data Attestation: I personally reviewed and interpreted this ECG as follows: (Normal sinus rhythm, 64 beats per minute. No acute ischemic change noted. , QT corrected 425 milliseconds.) ECG interpretation date: 09/03/23 ECG interpretation time: 17:54 Critical Care Time Critical Care Time Critical Care Time: No Discharge Plan Discharge Clinical Impression: Chest pain Qualifiers: Chest pain type: unspecified Qualified Code(s): R07.9 - Chest pain, unspecified Patient Disposition: Admitted As Observation
[2023-09-03] MEDS: ASPIRIN 81 MG TAB.CHEW 162 MG PO (17:50)
--- NOTE | 2023-09-03 20:41 | ED.NURSE ---
patient report given to Sunitha TRUONG. Patient going to room 259
--- NOTE | 2023-09-03 21:11 | PM.IMHP1 ---
Hospitalist- H&P: HPI History of Present Illness Time Seen by Provider: 21:00 Date Seen: 09/03/23 Chief complaint: Chest pain Narrative: Michael Beltran is a 72 year old male with no known h/o CAD who presented to the ER for the second time today, first with CRUZ, and now with substernal CP. He has been having CRUZ daily for the past few months. This happens anytime he lifts something, like groceries or wood. He has not had CP with this until this afternoon at 4pm while carrying presents out to the car. The presents were not heavy. He had been in the ER this morning for significant CRUZ. A chest CT was negative for PE, EKGs and troponins were unremarkable. He states he had a myoview stress test for CRUZ at the [facility] three weeks ago and this was normal. I do not have those results. He doctors with Dr. Garcia at the [facility]. He has a family history of heart disease, but has no personal history of it. He had a normal angiogram in 2006. He notes that the substernal CP started at 4 pm and never really went away. EMS gave him oxygen and he got aspirin and a SL nitro in the ER, none of which helped. He got zofran in the ER also and did feel a little better after that. While we were talking about this, he noted that the pain in his chest was getting worse, so we stopped and I got an EKG and troponin. These were unremarkable. Review of Systems Status of ROS: Reports: 10 or more systems reviewed and unremarkable except as noted in History and below [facility] Medical History (Updated 09/03/23 @ 22:10 by Shonda Montanez MD) Obstructive sleep apnea ?G47.33 - Obstructive sleep apnea (adult) (pediatric) (ICD-10) Pre-syncope (~2019) ?R55 - Syncope and collapse (ICD-10) Anxiety ?F41.9 - Anxiety disorder, unspecified (ICD-10) BPH (benign prostatic hyperplasia) ?N40.0 - Benign prostatic hyperplasia without lower urinary tract symptoms (ICD-10) Family history of ischemic heart disease ?Z82.49 - Family history of ischemic heart disease and other diseases of the circulatory system (ICD-10) Abdominal aneurysm without mention of rupture ?I71.40 - Abdominal aortic aneurysm, without rupture, unspecified (ICD-10) Hypercholesterolemia ?E78.00 - Pure hypercholesterolemia, unspecified (ICD-10) Bronchospasm ?J98.01 - Acute bronchospasm (ICD-10) Reactive airway disease ?J45.909 - Unspecified asthma, uncomplicated (ICD-10) Cough ?R05.9 - Cough, unspecified (ICD-10) Acid reflux ?K21.9 - Gastro-esophageal reflux disease without esophagitis (ICD-10) Depression ?F32.A - Depression, unspecified (ICD-10) Surgical History (Updated 09/03/23 @ 21:48 by Shonda Montanez MD) H/O vasectomy ?Z98.52 - Vasectomy status (ICD-10) H/O foot surgery ?Z98.890 - Other specified postprocedural states (ICD-10) H/O bilateral cataract extraction ?Z98.41 - Cataract extraction status, right eye (ICD-10) ?Z98.42 - Cataract extraction status, left eye (ICD-10) H/O colonoscopy ?Z98.890 - Other specified postprocedural states (ICD-10) History of hip replacement ?Z96.649 - Presence of unspecified artificial hip joint (ICD-10) Family History (Updated 09/03/23 @ 21:50 by Shonda Montanez MD) Brother Heart disease Abdominal aortic aneurysm Father Heart disease, Onset Age: 70 Abdominal aortic aneurysm Social History (Updated 09/03/23 @ 21:51 by Shonda Montanez MD) Narrative: Lives independently. 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 Lifelong nonsmoker. No alcohol use. What is your current living situation?: I presently have a place to live Problems where you live: no known problems Problems where you live details: N/A In the past 12 months, utilities in danger of being shut off: no In past 12 months, lack of transportation kept you from medical appts, meetings, work, or getting things needed for daily living: no In the past 12 mos, have been you worried that your food would run out before you had money to buy more?: never true In the past 12 mos, the food you bought just didn't last and you didn't have money to buy more?: never true Highest level of school completed/degree received: some college, no degree Smoking Status: Never smoker Do you use any of these nicotine containing products: None Second hand tobacco smoke exposure: No How often do you have a drink containing alcohol: never How often do you have six or more drinks on one occasion: Never AUDIT-C Alcohol total score: 0 Non-prescribed substance use: denies use Caffeine: Yes (several cans soda daily) How often does anyone, including family, friends and others, physically hurt you: never How often does anyone, including family, friends and others, insult or talk down to you: never How often does anyone, including family, friends and others, threaten you with harm: never How often does anyone, including family, friends and others, scream or curse at you: never service: Yes Meds Home Medications and Allergies Home Medications Medication Instructions Recorded Confirmed Type aspirin 81 mg chewable tablet 81 mg PO DAILY 11/20/22 09/03/23 History cetirizine 10 mg tablet 10 mg PO DAILY 11/20/22 09/03/23 History famotidine 20 mg tablet 20 mg PO BID 11/20/22 09/03/23 History fluoxetine 20 mg capsule 20 mg PO DAILY 11/20/22 09/03/23 History rosuvastatin 5 mg tablet (Crestor) 5 mg PO HS 11/20/22 09/03/23 History tamsulosin 0.4 mg capsule (Flomax) 0.4 mg PO DAILY 11/20/22 09/03/23 History omeprazole 20 mg capsule,delayed 20 mg PO BID 06/19/23 09/03/23 History release Allergies Allergy/AdvReac Type Severity Reaction Status Date / Time Sulfa (Sulfonamide Allergy Mild Rash Verified 09/03/23 20:52 Antibiotics) oxycodone Allergy Verified 09/03/23 09:02 bees Allergy Uncoded 06/19/23 16:17 Exam Narrative: Exam Narrative: General: No acute distress. Awake alert oriented x3. HEENT: Normocephalic atraumatic, pupils equally round and reactive to light and accommodation. Oropharynx clear. Mucous membranes are moist. No cervical lymphadenopathy, thyromegaly or carotid bruits. No JVD. Cardiovascular: Regular rate and rhythm. No murmurs, gallops, or rubs. Chest: No increased work of breathing. Clear to auscultation bilaterally. No crackles or wheezes. Substernal pain is not reproducible. Abdomen: Bowel sounds present. Soft, nondistended, mildly tender in the epigastrium, but this does not reproduce his chest pain. No rebound tenderness or guarding. No hepatosplenomegaly or masses. Extremities: No edema, no cyanosis or clubbing. Skin: No jaundice, no pallor, no rashes. Const: Vital Signs, click to edit/add: Vital Signs - 24 hr 09/03/23 16:59 09/03/23 17:19 09/03/23 17:31 Temperature 97.9 F Pulse Rate 64 Pulse Rate [Apical ] 73 Pulse Rate [Pulse Oximeter] Respiratory Rate 20 Blood Pressure Blood Pressure [Ri ght Arm] Blood Pressure [Ri ght Upper Arm] 99/71 Pulse Oximetry 88 93 92 Oxygen Delivery Me thod Room Air Oxygen Flow Rate 09/03/23 17:32 09/03/23 17:45 09/03/23 18:00 Temperature Pulse Rate 63 62 61 Pulse Rate [Apical ] Pulse Rate [Pulse Oximeter] Respiratory Rate Blood Pressure 115/71 Blood Pressure [Ri ght Arm] Blood Pressure [Ri ght Upper Arm] Pulse Oximetry 93 92 95 Oxygen Delivery Me thod Oxygen Flow Rate 09/03/23 18:01 09/03/23 18:15 09/03/23 18:30 Temperature Pulse Rate 59 L 59 L 56 L Pulse Rate [Apical ] Pulse Rate [Pulse Oximeter] Respiratory Rate Blood Pressure 115/71 Blood Pressure [Ri ght Arm] Blood Pressure [Ri ght Upper Arm] Pulse Oximetry 95 97 95 Oxygen Delivery Me thod Oxygen Flow Rate 09/03/23 18:31 09/03/23 18:45 09/03/23 19:00 Temperature Pulse Rate 58 L 57 L 56 L Pulse Rate [Apical ] Pulse Rate [Pulse Oximeter] Respiratory Rate Blood Pressure 126/77 Blood Pressure [Ri ght Arm] Blood Pressure [Ri ght Upper Arm] Pulse Oximetry 96 95 97 Oxygen Delivery Me thod Oxygen Flow Rate 09/03/23 19:01 09/03/23 19:08 09/03/23 19:15 Temperature Pulse Rate 58 L 60 Pulse Rate [Apical ] Pulse Rate [Pulse Oximeter] Respiratory Rate Blood Pressure 126/77 Blood Pressure [Ri ght Arm] Blood Pressure [Ri ght Upper Arm] Pulse Oximetry 97 93 97 Oxygen Delivery Me thod Nasal Cannula Oxygen Flow Rate 2 12/24/23 19:30 09/03/23 19:32 09/03/23 19:45 Temperature Pulse Rate 57 L 58 L 58 L Pulse Rate [Apical ] Pulse Rate [Pulse Oximeter] Respiratory Rate Blood Pressure 129/73 Blood Pressure [Ri ght Arm] Blood Pressure [Ri ght Upper Arm] Pulse Oximetry 95 97 97 Oxygen Delivery Me thod Oxygen Flow Rate 09/03/23 20:00 09/03/23 20:02 09/03/23 20:15 Temperature Pulse Rate 60 59 L 61 Pulse Rate [Apical ] Pulse Rate [Pulse Oximeter] Respiratory Rate Blood Pressure 119/91 H Blood Pressure [Ri ght Arm] Blood Pressure [Ri ght Upper Arm] Pulse Oximetry 97 97 94 Oxygen Delivery Me thod Oxygen Flow Rate 09/03/23 20:30 09/03/23 20:33 09/03/23 20:54 Temperature 97.7 F Pulse Rate 57 L 62 Pulse Rate [Apical ] Pulse Rate [Pulse Oximeter] 62 Respiratory Rate 16 Blood Pressure 111/55 L Blood Pressure [Ri ght Arm] 131/99 H Blood Pressure [Ri ght Upper Arm] Pulse Oximetry 96 97 97 Oxygen Delivery Me thod Room Air Oxygen Flow Rate Hospitalist - H&P: Result Labs Labs: 09/03/2023 9:17 p.m. EKG: Sinus bradycardia, 50 beats per minute, otherwise normal EKG. Ordering Physician: Marion Burris M.D. Date of Service: 09/03/23 Procedure(s): XR chest 1V portable Accession Number(s): [id number] cc: Marion Burris M.D.; Jerome Monteiro M.D.~ For Patients: As a result of the Century Cures Act, medical imaging exams and procedure reports are released immediately into your electronic medical record. You may view this report before your referring provider. If you have questions, please contact your health care provider. INDICATION: Shortness of breath. COMPARISON: 06/19/2023. Findings: A portable AP view of the chest was obtained. The cardiac silhouette and pulmonary vasculature are within normal limits. The lungs are clear bilaterally. IMPRESSION: No evidence of acute pulmonary disease. Dictated by Nikita Jean-Baptiste MD @ 09/03/2023 10:12:12 AM (Electronically Signed) Ordering Physician: Marion Burris M.D. Date of Service: 09/03/23 Procedure(s): CT angio chest PE protocol Accession Number(s): [id number] cc: Marion Burris M.D.; Jerome Monteiro M.D.~ For Patients: As a result of the Cures Act, medical imaging exams and procedure reports are released immediately into your electronic medical record. You may view this report before your referring provider. If you have questions, please contact your health care provider. INDICATION: Chest pain and shortness of breath Indication: Chest pain and shortness of breath. Technique: CT pulmonary angiogram. 95 cc of Isovue 370 IV. Coronal/sagittal reconstruction images. Comparison: 11/04/2020. Findings: No pulmonary emboli are demonstrated. There is no evidence to indicate right heart strain. No displaced intimal calcification. No mass at the thoracic inlet. No pleural or pericardial effusion. Coronary artery calcifications. No axillary, mediastinal, or hilar lymphadenopathy. Lung windows demonstrate no endobronchial nodule or mass. No resorptive atelectasis. There is bibasilar linear atelectasis. There is no peripheral honeycomb formation or traction bronchiectasis. Calcified granulomas are present. There is no suspicious pulmonary nodule. There is no acute airspace disease. Evaluation of the upper abdomen demonstrates no adrenal mass. Spleen size is normal. Calcified splenic granuloma. There is no pancreatic mass, pancreatic duct dilation, or glandular atrophy. No inflammatory changes adjacent to the gallbladder. No upper abdominal ascites. The bone windows demonstrate no suspicious bone lesions. Degenerative disc disease. The alignment is preserved on sagittal reconstruction images. Manubrium/body of the sternum appear intact. Impression: 1. No pulmonary emboli. 2. No evidence on CT to indicate right heart strain. There is no pulmonary infarct. 3. No thoracic lymphadenopathy or acute airspace disease. Dictated by Rachid Mayberry MD @ 09/03/2023 12:55:31 PM Please note that all CT scans at this facility use dose modulation, iterative reconstruction, and/or weight-based dosing when appropriate to reduce radiation dose to as low as reasonably achievable. Dictated by: Rachid Mayberry MD @ 09/03/2023 12:55:50 (Electronically Signed) Ordering Physician: Wendy Palafox M.D. Date of Service: 09/03/23 Procedure(s): XR chest 1V portable Accession Number(s): [id number] cc: Jerome Monteiro M.D.; Wendy Palafox M.D.~ For Patients: As a result of the Cures Act, medical imaging exams and procedure reports are released immediately into your electronic medical record. You may view this report before your referring provider. If you have questions, please contact your health care provider. INDICATION: Chest pain with associated diaphoresis. Shortness of breath. COMPARISON: Chest x-ray and chest CT done earlier the same day. FINDINGS: A portable AP view of the chest was obtained. The cardiac silhouette is stable. The pulmonary vasculature is within normal limits. The lungs are clear bilaterally. There is no pneumothorax. IMPRESSION: Stable chest x-ray. No evidence of acute pulmonary disease. Dictated by Nikita Jean-Baptiste MD @ 09/03/2023 5:45:00 PM (Electronically Signed) Assessment and Plan Assessment and plan (1) Chest pain: Problem comment: - 2006 normal angiogram. CRUZ for the past few months for which he had a myoview stress test at [facility] 3 weeks ago. Unremarkable, according to patient. CTA chest this am showed no PE and serial trops/EKGs were unremarkable. - ER doc spoke with clinical phlebotomist from [place] who recommended observation, telemetry, and trop/EKG in am and prn CP. - Differential also include GERD and anxiety. Patient has a h/o of both of these and is on two regular medications for GERD. Status: Acute (2) Exertional shortness of breath: Problem comment: - As above. Will need to f/u with PCP for ongoing outpatient w/u. Status: Acute (3) Family history of ischemic heart disease: Status: Chronic (4) Hypercholesterolemia: Problem comment: - Continue rosuvastatin Status: Chronic
[2023-09-03 22:05] LABS: Troponin I* < 0.01 ng/mL (0.01-0.04)
[2023-09-03] MEDS: ROSUVASTATIN CALCIUM 10 MG TABLET 5 MG PO (22:41)
[2023-09-03] MEDS: MAG HYDROX/ALUMINUM HYD/SIMETH 30 ML ORAL.SUSP 15 ML PO (22:41)
[2023-09-03] MEDS: OMEPRAZOLE 20 MG CAPSULE DR PO (22:41)
[2023-09-03] MEDS: FAMOTIDINE 20 MG TABLET PO (22:41)
--- NOTE | 2023-09-03 22:45 | PC.NURSE ---
Admit: Patient alert and oriented, uses call light appropriately, independent in room. Vitals stable and WNL. o2 sat >90% on RA. States chest pain has improved, rates 2/10 and verbalized that it does not radiate anywhere. 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
[2023-09-04 00:16] VITALS: BP 116/58; PULSE 60; RESP 16; TEMP 36.7; O2SAT 94
[2023-09-04 00:41] VITALS: PULSE 61
[2023-09-04 05:49] VITALS: BP 122/74; PULSE 62; RESP 18; TEMP 36.6; O2SAT 95
--- NOTE | 2023-09-04 06:08 | PC.NURSE ---
[id number]: Patient pleasant and cooperative. Independent. Denies chest pain and dyspnea. VSS. Appeared to rest well during noc.
[2023-09-04 07:24] LABS: Troponin I* < 0.01 ng/mL (0.01-0.04)
[2023-09-04 08:00] VITALS: BP 127/75; PULSE 58; RESP 18; TEMP 36.9; O2SAT 94
[2023-09-04 09:15] VITALS: PULSE 67
--- NOTE | 2023-09-04 10:17 | PC.NURSE ---
Pt denies chest pain and SOB at rest and with ambulation. Ambulated 800 feet in [place]. At rest 94% on RA, HR 64; lowest O2 reached 90% & HR 95. Pt had no complaints and felt comfortable with DC plan. IV DC'd, cath tip intact. DC instructions given verbally and in writing. Pt understands to follow up with PCP for cardiology and pulmonology. DC'd to home @0943, picked up by friend.
--- NOTE | 2023-09-04 12:08 | PM.DS1 ---
DS: Providers Provider Date Seen: 09/04/23 Date of admission: 09/03/23 20:44 Primary care physician: Jerome Monteiro MD Admitting Clinician: Shonda Montanez MD Attending Physician on discharge: Clive Berry MD Date of Discharge: 09/04/23 DS: Diagnosis Discharge Diagnosis (1) Chest pain: Status: Acute Problem details: - 2006 normal angiogram. CRUZ for the past few months for which he had a myoview stress test at [facility] 3 weeks ago. Unremarkable, according to patient. CTA chest yesterday showed no PE and serial trops/EKGs were unremarkable. Overnight patient had no further chest pain. He was able to ambulate in the hallway without chest pain. (2) Exertional shortness of breath: Status: Acute Problem details: Reports weeks of exertional dyspnea. Recommend outpatient evaluation for this with primary care provider at the [facility] and if indicated consultation with pulmonology and Cardiology. No hypoxia in the hospital. (3) Family history of ischemic heart disease: Status: Chronic (4) Hypercholesterolemia: Status: Chronic Problem details: - Continue rosuvastatin DS: Summary Hospital Course Hospital Course: Admission HPI: Michael Beltran is a 72 year old male with no known h/o CAD who presented to the ER for the second time today, first with CRUZ, and now with substernal CP. He has been having CRUZ daily for the past few months. This happens anytime he lifts something, like groceries or wood. He has not had CP with this until this afternoon at 4pm while carrying presents out to the car. The presents were not heavy. He had been in the ER this morning for significant CRUZ. A chest CT was negative for PE, EKGs and troponins were unremarkable. He states he had a myoview stress test for CRUZ at the [facility] three weeks ago and this was normal. I do not have those results. He doctors with Dr. Garcia at the [facility]. He has a family history of heart disease, but has no personal history of it. He had a normal angiogram in 2006. He notes that the substernal CP started at 4 pm and never really went away. EMS gave him oxygen and he got aspirin and a SL nitro in the ER, none of which helped. He got zofran in the ER also and did feel a little better after that. While we were talking about this, he noted that the pain in his chest was getting worse, so we stopped and I got an EKG and troponin. These were unremarkable. During his hospital stay he remained asymptomatic. He had no chest pain and no unusual dyspnea. No hypoxia. Serial troponins and electrocardiograms were normal. Vital sign monitoring and cardiac telemetry were also normal. Status at Discharge Functional status at discharge: independent ambulation Overall status at discharge: patient is back to baseline Time Spent with Patient Time attestation: Total time spent providing and/or coordinating discharge services: Time spent: Greater than 30 minutes Exam Narrative: Exam Narrative: He is alert appears in no distress. He is pleasant cooperative and gives his own history. Respirations are clear to auscultation. Cardiovascular: S1, S2, regular rate and rhythm. No murmur gallop or rub. Abdomen: Bowel sounds active. Abdomen is soft without tenderness or mass. Extremities without edema. Const: Vital Signs, click to edit/add: Vital Signs - 24 hr 09/03/23 16:59 09/03/23 17:19 09/03/23 17:31 Temperature 97.9 F Pulse Rate 64 Pulse Rate [Apical ] 73 Pulse Rate [Pulse Oximeter] Respiratory Rate 20 Blood Pressure Blood Pressure [Ri ght Arm] Blood Pressure [Ri ght Upper Arm] 99/71 Pulse Oximetry 88 93 92 Oxygen Delivery Me thod Room Air Oxygen Flow Rate 09/03/23 17:32 09/03/23 17:45 09/03/23 18:00 Temperature Pulse Rate 63 62 61 Pulse Rate [Apical ] Pulse Rate [Pulse Oximeter] Respiratory Rate Blood Pressure 115/71 Blood Pressure [Ri ght Arm] Blood Pressure [Ri ght Upper Arm] Pulse Oximetry 93 92 95 Oxygen Delivery Me thod Oxygen Flow Rate 09/03/23 18:01 09/03/23 18:15 09/03/23 18:30 Temperature Pulse Rate 59 L 59 L 56 L Pulse Rate [Apical ] Pulse Rate [Pulse Oximeter] Respiratory Rate Blood Pressure 115/71 Blood Pressure [Ri ght Arm] Blood Pressure [Ri ght Upper Arm] Pulse Oximetry 95 97 95 Oxygen Delivery Me thod Oxygen Flow Rate 09/03/23 18:31 09/03/23 18:45 09/03/23 19:00 Temperature Pulse Rate 58 L 57 L 56 L Pulse Rate [Apical ] Pulse Rate [Pulse Oximeter] Respiratory Rate Blood Pressure 126/77 Blood Pressure [Ri ght Arm] Blood Pressure [Ri ght Upper Arm] Pulse Oximetry 96 95 97 Oxygen Delivery Me thod Oxygen Flow Rate 09/03/23 19:01 09/03/23 19:08 09/03/23 19:15 Temperature Pulse Rate 58 L 60 Pulse Rate [Apical ] Pulse Rate [Pulse Oximeter] Respiratory Rate Blood Pressure 126/77 Blood Pressure [Ri ght Arm] Blood Pressure [Ri ght Upper Arm] Pulse Oximetry 97 93 97 Oxygen Delivery Me thod Nasal Cannula Oxygen Flow Rate 2 09/03/23 19:30 09/03/23 19:32 09/03/23 19:45 Temperature Pulse Rate 57 L 58 L 58 L Pulse Rate [Apical ] Pulse Rate [Pulse Oximeter] Respiratory Rate Blood Pressure 129/73 Blood Pressure [Ri ght Arm] Blood Pressure [Ri ght Upper Arm] Pulse Oximetry 95 97 97 Oxygen Delivery Me thod Oxygen Flow Rate 09/03/23 20:00 09/03/23 20:02 09/03/23 20:15 Temperature Pulse Rate 60 59 L 61 Pulse Rate [Apical ] Pulse Rate [Pulse Oximeter] Respiratory Rate Blood Pressure 119/91 H Blood Pressure [Ri ght Arm] Blood Pressure [Ri ght Upper Arm] Pulse Oximetry 97 97 94 Oxygen Delivery Me thod Oxygen Flow Rate 09/03/23 20:30 09/03/23 20:33 09/03/23 20:54 Temperature 97.7 F Pulse Rate 57 L 62 Pulse Rate [Apical ] Pulse Rate [Pulse Oximeter] 62 Respiratory Rate 16 Blood Pressure 111/55 L Blood Pressure [Ri ght Arm] 131/99 H Blood Pressure [Ri ght Upper Arm] Pulse Oximetry 96 97 97 Oxygen Delivery Me thod Room Air Oxygen Flow Rate 09/04/23 00:16 09/04/23 00:41 09/04/23 05:49 Temperature 98.1 F 97.8 F Pulse Rate 61 Pulse Rate [Apical ] Pulse Rate [Pulse Oximeter] 60 62 Respiratory Rate 16 18 Blood Pressure Blood Pressure [Ri ght Arm] 116/58 L 122/74 Blood Pressure [Ri ght Upper Arm] Pulse Oximetry 94 95 Oxygen Delivery Me thod Room Air Room Air Oxygen Flow Rate 09/04/23 08:00 09/04/23 09:15 Temperature 98.5 F Pulse Rate 67 Pulse Rate [Apical ] Pulse Rate [Pulse Oximeter] 58 L Respiratory Rate 18 Blood Pressure Blood Pressure [Ri ght Arm] 127/75 Blood Pressure [Ri ght Upper Arm] Pulse Oximetry 94 Oxygen Delivery Me thod Room Air Oxygen Flow Rate Documenting provider has reviewed patient's vital signs: yes DS: Data Data Completed and Pending Labs on day of discharge: Labs from last 24 hours 09/04/23 09/03/23 09/03/23 05:45 21:22 17:40 Troponin I < 0.01 L < 0.01 L POC Troponin I 0.[address] scan - chest: Radiologist's impression: Indication: Chest pain and shortness of breath. Technique: CT pulmonary angiogram. 95 cc of Isovue 370 IV. Coronal/sagittal reconstruction images. Comparison: 11/04/2020. Findings: No pulmonary emboli are demonstrated. There is no evidence to indicate right heart strain. No displaced intimal calcification. No mass at the thoracic inlet. No pleural or pericardial effusion. Coronary artery calcifications. No axillary, mediastinal, or hilar lymphadenopathy. Lung windows demonstrate no endobronchial nodule or mass. No resorptive atelectasis. There is bibasilar linear atelectasis. There is no peripheral honeycomb formation or traction bronchiectasis. Calcified granulomas are present. There is no suspicious pulmonary nodule. There is no acute airspace disease. Evaluation of the upper abdomen demonstrates no adrenal mass. Spleen size is normal. Calcified splenic granuloma. There is no pancreatic mass, pancreatic duct dilation, or glandular atrophy. No inflammatory changes adjacent to the gallbladder. No upper abdominal ascites. The bone windows demonstrate no suspicious bone lesions. Degenerative disc disease. The alignment is preserved on sagittal reconstruction images. Manubrium/body of the sternum appear intact. Impression: 1. No pulmonary emboli. 2. No evidence on CT to indicate right heart strain. There is no pulmonary infarct. 3. No thoracic lymphadenopathy or acute airspace disease. Discharge Plan Discharge Disposition: Home, Self-Care Date of Admission: 09/03/23 20:44 Attending Provider on Discharge: Nikita Berry Primary Care Provider: Jerome Monteiro Condition: Improved Anticipated Discharge Date/Time: 09/04/23 10:00 Discharge Medications: Continued omeprazole 20 mg capsule,delayed release(DR/EC) 20 mg PO BID albuterol sulfate 90 mcg/actuation HFA aerosol inhaler 2 puff inhalation Q4-6H PRN (Reason: shortness of breath or wheezing) Qty: 8.5 0RF tamsulosin [Flomax] 0.4 mg capsule 0.4 mg PO DAILY fluoxetine 20 mg capsule 20 mg PO DAILY rosuvastatin [Crestor] 5 mg tablet 5 mg PO HS aspirin 81 mg tablet,chewable 81 mg PO DAILY famotidine 20 mg tablet 20 mg PO BID cetirizine 10 mg tablet 10 mg PO DAILY Discharge Orders: Discharge Order (Routine); Ordered 09/04/23 Ordered By: Nikita Berry Patient Education: Chest Pain (DC) Additional Instructions: Follow-up with your primary care doctor at the [facility]. Talk to your primary care doctor at the [facility] about cardiology and pulmonology evaluation. Activity Level: No Restrictions Discharge Diet: Regular Follow Up Appointments: Jerome Monteiro MD [Primary Care Provider] - Forms: [employer] Info Instructions
== END 2023-09-04 09:55 | disposition home or self-care (01) ==
LOC: ED 19:12 → MEDSURG 20:44
PROVIDERS: Admitting Provider Family Medicine; Emergency Provider Family Medicine; PCP Family Medicine; Visit Provider Family Medicine
DX: R07.9 Chest pain, unspecified (principal); R06.02 Shortness of breath; E78.00 Pure hypercholesterolemia, unspecified; K21.9 Gastro-esophageal reflux disease without esophagitis; N40.0 Benign prostatic hyperplasia without lower urinary tract symptoms; J45.909 Unspecified asthma, uncomplicated; Z79.82 Long term (current) use of aspirin; Z98.52 Vasectomy status; Z96.649 Presence of unspecified artificial hip joint; Z82.49 Family history of ischemic heart disease and other diseases of the circulatory system; Z98.41 Cataract extraction status, right eye; Z98.42 Cataract extraction status, left eye; Z98.890 Other specified postprocedural states
CPT/HCPCS: 36415; 71045; 71275; 80053; 83880; 84484; 85025; 85379; 87631; 93005; 94761; 99284; 99285; G0378; A9270; J7120; Q9967